=== PATIENT | female | born 1995 | race Caucasian/White ===

== ENCOUNTER 2023-01-07 06:40 | Emergency (ER) | payer OTHER ==
[~2023-01-07] VITALS: Ht 162.6 cm; Wt 73.0 kg
[2023-01-07 06:51] VITALS: BP 99/44; PULSE 129; RESP 16; TEMP 101.5; O2SAT 99
--- NOTE | 2023-01-07 06:57 | NUR ---
TO ROOM 4 FOLLOWING TRIAGE.
[2023-01-07] MEDS ORDERED: IBUPROFEN 600 MG TAB PO ONE (07:10)
--- NOTE | 2023-01-07 07:10 | NUR ---
DR. OHARA EXAMINING PATIENT.
--- NOTE | 2023-01-07 07:16 | NUR ---
PATIENT IS A 27/F WHO CAME IN DUE TO 1 DAY HISTORY OF FEVER ASSOCIATED WITH PRODUCTIVE COUGH & SORE THROAT. NO NAUSEA/VOMITING/DIARRHEA NOTED. PATIENT TOOK TYLENOL AT 0200. PMHX: DARA KAUFMAN
--- NOTE | 2023-01-07 08:11 | NUR ---
AMANDA, FLU, STREP AND URINE SAMPLES TAKEN TO LAB AT THIS TIME.
[2023-01-07 08:36] LABS: APPEARANCE,URINE CLEAR (CLEAR); BILIRUBIN,URINE NEGATIVE (NEGATIVE); BLOOD, URINE 2+ (NEGATIVE); COLOR,URINE YELLOW (YELLOW); LEUKOCYTE ESTERASE ,URINE TRACE (NEGATIVE); NITRITE, URINE NEGATIVE (NEGATIVE); UGLUCOSE NEGATIVE (NEGATIVE)
[2023-01-07] MEDS ORDERED: BENZ-300 PO (09:03)
[2023-01-07] MEDS ORDERED: NITR100C7 PO (09:03)
[2023-01-07] MEDS ORDERED: MUC600 PO (09:03)
[2023-01-07 09:14] VITALS: BP 99/60; PULSE 70; RESP 18; TEMP 99.4; O2SAT 95
--- NOTE | 2023-01-07 09:15 | NUR ---
Patient discharged with v/s stable. Written and verbal after care instructions given and explained. Patient alert, oriented and verbalized understanding of instructions. Ambulatory with steady gait. All questions addressed prior to discharge. ID band removed. Patient advised to follow up with PMD. Rx of CEPACOL, MUCINEX, MACROBID (SENT) given. Patient educated on indication of medication including possible reaction and side effects. Opportunity to ask questions provided and answered.
== END 2023-01-07 09:15 | disposition home or self-care (01) ==
LOC: MED 06:40
DX: J06.9 Acute upper respiratory infection, unspecified (principal); N39.0 Urinary tract infection, site not specified; Z20.822 Contact with and (suspected) exposure to COVID-19; Z79.899 Other long term (current) drug therapy
CPT/HCPCS: 81001; 81025; 87081; 87086; 99283